=== PATIENT | male | born 1985 | race Caucasian/White ===

== ENCOUNTER 2024-06-19 22:22 | Emergency (ER) | payer MEDICAID, SELFPAY ==
[2024-06-19 22:26] VITALS: BMI 28.7
[2024-06-19 23:12] VITALS: BP 132/84; PULSE 70; RESP 17; TEMP 36.9; O2SAT 99
--- NOTE | 2024-06-19 23:16 | XR_ITS ---
Examination: CT brain head without contrast. 2-D sagittal coronal reconstructions Date and time of exam:June 19, 2024 1131 hrs. Comparison January 08, 2014 Indications: Seizure today CTDI: vol (mGy):52.30 DLP: (mGycm):1071 Technique: Multiple CT axial sections of the brain have been obtained, 5 mm slice thickness. Contrast has not been administered. 2-D sagittal, coronal reconstructions have been obtained Low dose protocols were performed. One or more of the following dose reduction techniques were used; automated exposure control, adjustment of the mA and/or KV according to patient size, use of iterative reconstruction technique. Findings: No significant ventricular enlargement. Stable area encephalomalacia left frontal temporal lobe Intra-axial or extra-axial hemorrhage density is not seen. No mass effect or midline shift Basal cisterns are not remarkable. Fourth ventricle is midline. Cranial vault intact. Severe left ethmoid maxillary antral chronic sinusitis Impression: Negative for acute hemorrhage, mass effect or midline shift Consider elective brain MRI follow-up, pre and postcontrast seizure protocol
--- NOTE | 2024-06-19 23:18 | PD.EDRME ---
Rapid Medical Screening Exam E Arrival date/time: 06/19/24 22:22 39-year-old male with past medical history of epilepsy on Keppra presents emergency department complaining of seizures, nausea vomiting, abdominal pain, and headaches. Chief Complaint: Seizure Time Seen by Provider: 06/19/24 23:14 Vital signs: Vital Signs Temperature 98.4 F 06/19/24 23:12 Pulse Rate 70 06/19/24 23:12 Respiratory Rate 17 06/19/24 23:12 Blood Pressure 132/84 H 06/19/24 23:12 Pulse Oximetry (%) 99 06/19/24 23:12 Oxygen Delivery Method Room Air 06/19/24 23:12 Vital signs reviewed by provider: Yes
[2024-06-20 00:33] LABS: Basophils # (Auto) 0.1 Thou/mm3 (0.0-0.2); Basophils % (Auto) 1 % (0-2.5); Eosinophils # (Auto) 0.1 Thou/mm3 (0.0-0.5); Eosinophils % (Auto) 1 % (0-10); Hemoglobin 13.9 g/dL (13.5-16.0); Immature Granulocytes % (Auto) 0 % (0-0); Immature Granulocytes Auto 0.03 Thou/mm3 (0.00-0.00); Lymphocytes % (Auto) 23 % (10-50); Mean Corpuscular HGB Conc 33.9 g/dl (31.0-37.0); Mean Corpuscular Hemoglobin 29.2 pg (25.0-35.0); Mean Corpuscular Volume 86 fL (80-100); Monocytes # (Auto) 0.9 Thou/mm3 (0.0-0.8); Monocytes % (Auto) 10 % (0-12); Neutrophils # (Auto) 5.6 Thou/mm3 (1.8-7.7); Neutrophils % (Auto) 65 % (37-80); Nucleated Red Blood Cell % 0 /100 WBC (0); Platelet Count 340 Thou/mm3 (140-440); RDW Standard Deviation 37.6 fL (35.1-43.9); Red Blood Count 4.76 Miln/mm3 (4.50-5.90); White Blood Count 8.6 Thou/mm3 (3.8-10.6)
[2024-06-20 00:40] LABS: Alanine Aminotransferase 13 U/L (10-49); Albumin/Globulin Ratio 1.5 (1.2-2.2); Alkaline Phosphatase 61 U/L (46-116); Anion Gap 7 (7-16); Aspartate Amino Transferase 15 U/L (0-34); BUN/Creatinine Ratio 6 Ratio (12-20); Bilirubin,Total 0.5 mg/dL (0.3-1.2); Blood Urea Nitrogen 7 mg/dL (9-23); Calcium 10.6 mg/dL (8.3-10.6); Calcium (Corrected) 10.6 mg/dL (8.5-10.1); Carbon Dioxide 26.9 mMol/L (20.0-31.0); Chloride 107 mMol/L (98-107); Creatinine (Component) 1.1 mg/dL (0.6-1.3); Estimated Creatinine Clearance 117.9 mL/min (>60); Globulin 3.3 gm/dL (2.3-3.5); Glucose 93 mg/dL (74-106); Lipase 34 U/L (12-53); Osmolality,Calculated 279 (275-295); Potassium 3.9 mMol/L (3.4-5.1); Sodium 141 mMol/L (136-145); Total Protein 8.3 gm/dL (5.7-8.2); eGFR > 60 See Note
[2024-06-20 02:52] VITALS: BP 172/93; PULSE 60; RESP 15; O2SAT 100
[2024-06-20 03:00] VITALS: BP 149/83; PULSE 63; RESP 15; O2SAT 99
[2024-06-20 04:00] VITALS: BP 148/91; PULSE 59; RESP 14; O2SAT 100
--- NOTE | 2024-06-20 04:35 | PD.EDSEIZ ---
ED Seizures RME/HPI General Chief Complaint: Seizure Stated Complaint: SEIZURE, STOMACH PAIN, CONFUSION Time Seen by Provider: 06/19/24 23:14 Source: patient and family Arrival date/time: 06/19/24 22:22 Mode of arrival: ambulatory Limitations: no limitations RME / HPI RME / HPI Narrative: 06/19/24 22:22 39-year-old male with past medical history of epilepsy on Keppra presents emergency department complaining of seizures, nausea vomiting, abdominal pain, and headaches. Dr. Christian?s Main ED Evaluation: 39-year-old male who has a history of epilepsy on Keppra, depression who presents with two breakthrough seizures today. He notes compliance with his Keppra and rarely has breakthrough seizures. He has recently been started on Amoxicillin by his dentist which he?s been taking since this past Wednesday. He feels that this is triggering his seizures. His next appointment for his tooth extraction is tomorrow morning and he plans to stop the amoxicillin at this point. He denies drugs. Related Data Home Medications ?Medication ?Instructions ?Recorded ?Confirmed carisoprodol 350 mg tablet (Soma) 350 mg PO HS #0 tabs 09/03/13 prednisone 10 mg tablet 40 mg PO QDAY ##0 09/03/13 Cyclobenzaprine * (FLEXERIL *) 10 mg PO TID PRN DIZZINESS #0 tabs 01/08/14 HYDROCODONE BIT/ACETAMINOPHEN 1 tab PO TID PRN PAIN ##0 01/08/14 (HYDROCODON-ACETAMINOPHEN 5-300) Ketorolac Tromethamine * (TORADOL 10 mg PO Q6HR PRN PAIN #0 tabs 01/08/14 *) allopurinol 300 mg tablet 300 mg PO QDAY #0 tabs 01/08/14 (Zyloprim) bupropion HCl 150 mg tablet,12 hr 150 mg PO BID ##0 01/08/14 sustained-release (Wellbutrin SR) bupropion HCl 75 mg tablet 75 mg PO QDAY #0 tabs 01/08/14 fluoxetine 20 mg capsule (Prozac) 20 mg PO QAM #0 caps 01/08/14 folic acid 1 mg tablet 1 mg PO QDAY #0 tabs 01/08/14 levetiracetam 500 mg tablet 500 mg PO BID #0 tabs 01/08/14 (Keppra) methocarbamol 750 mg tablet 750 mg PO BID #0 tabs 01/08/14 methotrexate sodium 2.5 mg tablet 5 tab PO QWEEK ##0 01/08/14 (methotrexate) naproxen 500 mg tablet (Naprosyn) 1 tab PO BIDWM #0 tabs 01/08/14 phenytoin sodium extended 100 mg 200 mg PO HS ##0 01/08/14 capsule sertraline 25 mg tablet (Zoloft) 25 mg PO HS #0 tabs 01/08/14 Previous Rx's ?Medication ?Instructions ?Recorded paroxetine HCl 10 mg tablet (Paxil) 10 mg PO QDAY #30 tabs 01/15/23 Allergies Allergy/AdvReac Type Severity Reaction Status Date / Time No Known Allergies Allergy Verified 06/19/24 22:37 Review of Systems Review of Systems Systems Reviewed: All systems reviewed, normal except as documented Past Medical History Past Medical History CARDIAC: Negative Congestive Heart Failure RESPIRATORY: Negative Chronic Obstructive Pulmonary Disease (COPD) GENITOURINARY: Negative Renal Disease ENDOCRINE: Negative Diabetes Mellitus Type 1 or Diabetes Mellitus Type 2 Social History SMOKING STATUS: Current some day smoker ED Exam Narrative Physical exam: GENERAL APPEARANCE: AxOx4, generally well-appearing, no acute distress. HEENT: NC, AT. MMM. EOMI, clear conjunctiva, oropharynx clear. NECK: Supple without lymphadenopathy. No stiffness or restricted ROM. HEART: Normal rate and regular rhythm, normal S1/S1, no m/r/g LUNGS: CTAB, moving air well. No crackles or wheezes are heard. ABDOMEN: Soft, nontender, nondistended with good bowel sounds heard. BACK: No midline C/T/L spine pain or deformity, No CVAT, no obvious deformity. EXTREMITIES: Without cyanosis, clubbing or edema. MUSCULOSKELETAL: FROM of all major joints, no chest tenderness NEUROLOGICAL: Grossly nonfocal. Alert and oriented, moving all 4 extremities. CN not formally tested but appear grossly intact. Observed to ambulate with normal gait. Skin: Warm and dry without any rash General Limitations: Present no limitations Course Quality Measures none Orders Category Date Time Status Bedside COVID-19 Antigen Test NOW Care 06/19/24 23:17 Completed Bedside Influenza A&B Antigen Test NOW Care 06/19/24 23:[address] head/brain wo con Stat Exams 06/19/24 23:16 Completed US OB <= 14 weeks fetus Stat Exams 06/19/24 23:15 Stop Req CBC Stat Lab 06/19/24 23:16 Completed CMP [Comprehensive Metabolic Panel] Stat Lab 06/19/24 23:16 Completed Lipase Stat Lab 06/19/24 23:16 Completed Vital Signs Vital signs: Vital Signs Temperature 98.4 F 06/19/24 23:12 Pulse Rate 70 06/19/24 23:12 Respiratory Rate 17 06/19/24 23:12 Blood Pressure 132/84 H 06/19/24 23:12 Pulse Oximetry (%) 99 06/19/24 23:12 Oxygen Delivery Method Room Air 06/19/24 23:12 Seizure MDM Narrative MDM Narrative:: Scribe Attestation: I, Viktor Bullard, am scribing for and in the presence of Dr. Christian. Provider Notation: Although this document has been carefully reviewed, there may still be some phonetic and other typographical errors. These errors are purely grammatical due to imperfections in the software program and should not be construed in any way to compromise the substance of the patient's medical care during this visit. Patient data External records reviewed:: [facility] previous records Clinical information provided by:: patient Social determinants that could affect healthcare access:: none Patient has the following chronic illnesses:: Seizures on Keppra, Depression How is presenting disease/condition affected by chronic disease/condition?: caused by Evaluation data The following diagnostics were reviewed and interpreted by me:: lab results and radiology exam(s) Lab and/or radiology exams considered but not ordered:: None Interpretation Summary: I personally reviewed the radiology data and agree with the radiologist's interpretation. Examination: CT brain head without contrast. 2-D sagittal coronal reconstructions Date and time of exam:June 19, 2024 1131 hrs. Comparison January 08, 2014 Indications: Seizure today Findings: No significant ventricular enlargement. Stable area encephalomalacia left frontal temporal lobe Intra-axial or extra-axial hemorrhage density is not seen. No mass effect or midline shift Basal cisterns are not remarkable. Fourth ventricle is midline. Cranial vault intact. Severe left ethmoid maxillary antral chronic sinusitis Impression: Negative for acute hemorrhage, mass effect or midline shift Consider elective brain MRI follow-up, pre and postcontrast seizure protocol Dictated By: Brad Glass MD Medications / Prescriptions Medications or Prescriptions considered but not ordered:: None Medication administrations:: As above, if any Consultations Consultation(s) initiated? (list below): No Diagnosis Seizure Differential Diagnosis: intractable seizure disorder, focal seizure, generalized seizure, new onset seizure, epileptic seizure and status epilepticus Most likely diagnosis given after review of the tests above:: Epileptic seizure Admission Indicated Admission indicated?: not indicated Admission Request Was there a request for admission?: No Disposition Plan Disposition Plan: Discharge Discharge Attestation Discharge Attestation: The patient and all family members were given an opportunity to ask questions and understood the discharge instructions. Discharge instructions specifically effects, indications for sooner follow up or return to the emergency department, and the expected course of current diagnosis. Patient condition: Stable Discharge Plan Plan Patient Disposition: HOME (Self Care) Prescriptions/Referrals Prescriptions/Med Rec: No Action carisoprodol [Soma] 350 MG tablet 350 mg PO HS Qty: 0 prednisone 10 MG tablet 40 mg PO QDAY Qty: 0 bupropion HCl [Wellbutrin SR] 150 MG tablet extended release 12 hr 150 mg PO BID Qty: 0 levetiracetam [Keppra] 500 MG tablet 500 mg PO BID Qty: 0 phenytoin sodium extended 100 MG capsule 200 mg PO HS Qty: 0 methocarbamol 750 MG tablet 750 mg PO BID Qty: 0 methotrexate sodium [methotrexate] 2.5 MG tablet 5 tab PO QWEEK Qty: 0 bupropion HCl 75 MG tablet 75 mg PO QDAY Qty: 0 sertraline [Zoloft] 25 MG tablet 25 mg PO HS Qty: 0 folic acid 1 MG tablet 1 mg PO QDAY Qty: 0 allopurinol [Zyloprim] 300 MG tablet 300 mg PO QDAY Qty: 0 fluoxetine [Prozac] 20 MG capsule 20 mg PO QAM Qty: 0 naproxen [Naprosyn] 500 MG tablet 1 tab PO BIDWM Qty: 0 Patient Comments: PRN PAIN Cyclobenzaprine * (FLEXERIL *) 10 MG tablet 10 mg PO TID PRN (Reason: DIZZINESS) Qty: 0 HYDROCODONE BIT/ACETAMINOPHEN (HYDROCODON-ACETAMINOPHEN 5-300) 1 EACH tablet 1 tab PO TID PRN (Reason: PAIN) Qty: 0 Ketorolac Tromethamine * (TORADOL *) 10 MG tablet 10 mg PO Q6HR PRN (Reason: PAIN) Qty: 0 paroxetine HCl [Paxil] 10 mg tablet 10 mg PO QDAY Qty: 30 0RF Referrals: No Primary/Family,Physician [Primary Care Provider] - In 1 week Problem List Clinical Impression: Epileptic seizure Patient/Caregiver Discharge Instructions Education Materials: ED Seizure, Recurrent (Adult) Additional Instructions: At this point it would be fine to stop the amoxicillin. You can continue to see the dentist with your planned procedure. Follow-up with your neurologist in 1 week for recheck. Feel free return to the emergency department sooner if symptoms worsen or if you notice any new, concerning issues. Print Language: Monegasque Stand Alone Forms: [facility] Award Info., Patient Portal Info Letter
== END 2024-06-20 04:09 | disposition home or self-care (01) ==
PROVIDERS: Emergency Provider Emergency Medicine
DX: G40.909 Epilepsy, unspecified, not intractable, without status epilepticus (principal)
CPT/HCPCS: 36415; 70450; 80053; 80307; 81001; 83690; 84702; 85025; 86900; 86901; 87400; 87651; 87811; 99284

== ENCOUNTER 2025-01-02 07:03 | Emergency (ER) | payer MEDICAID, SELFPAY ==
[2025-01-02] VITALS (22 sets, daily range): BP systolic 136–158; BP diastolic 74–108; PULSE 61–137; RESP 13–40; TEMP 36.2–37.2; O2SAT 93–100; BMI 28.2
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
[2025-01-02] MEDS: levETIRAcetam INJ 100 MG/ML VIAL 5ML 1000 MG IVP (08:06)
[2025-01-02 08:43] LABS: Basophils % (Auto) 1 % (0-2.5); Eosinophils % (Auto) 0 % (0-10); Hemoglobin 15.6 g/dL (13.5-16.0); Immature Granulocytes % (Auto) 0 % (0-0); Immature Granulocytes Auto 0.02 Thou/mm3 (0.00-0.00); Lymphocytes # (Auto) 1.2 Thou/mm3 (1.0-4.8); Lymphocytes % (Auto) 16 % (10-50); Mean Corpuscular HGB Conc 35.5 g/dl (31.0-37.0); Mean Corpuscular Hemoglobin 29.9 pg (25.0-35.0); Mean Corpuscular Volume 84 fL (80-100); Monocytes # (Auto) 0.7 Thou/mm3 (0.0-0.8); Monocytes % (Auto) 9 % (0-12); Neutrophils # (Auto) 5.3 Thou/mm3 (1.8-7.7); Neutrophils % (Auto) 73 % (37-80); Nucleated Red Blood Cell % 0 /100 WBC (0); Platelet Count 257 Thou/mm3 (140-440); RDW Standard Deviation 38.6 fL (35.1-43.9); Red Blood Count 5.22 Miln/mm3 (4.50-5.90); White Blood Count 7.2 Thou/mm3 (3.8-10.6)
[2025-01-02 09:08] LABS: Alanine Aminotransferase 14 U/L (10-49); Albumin, Serum 5.3 gm/dL (3.5-5.0); Albumin/Globulin Ratio 1.8 (1.2-2.2); Alcohol, Blood Medical < 3.0 mg/dL (0-10.0); Alkaline Phosphatase 54 U/L (46-116); Anion Gap 14 (7-16); Aspartate Amino Transferase 20 U/L (0-34); BUN/Creatinine Ratio 12 Ratio (12-20); Bilirubin,Total 1.1 mg/dL (0.3-1.2); Blood Urea Nitrogen 13 mg/dL (9-23); Calcium 9.5 mg/dL (8.3-10.6); Calcium (Corrected) 9.5 mg/dL (8.5-10.1); Carbon Dioxide 25.1 mMol/L (20.0-31.0); Chloride 104 mMol/L (98-107); Creatinine (Component) 1.1 mg/dL (0.6-1.3); Estimated Creatinine Clearance 113.8 mL/min (>60); Globulin 2.9 gm/dL (2.3-3.5); Glucose 105 mg/dL (74-106); Lipase 31 U/L (12-53); Magnesium 2.1 mg/dL (1.6-2.6); Osmolality,Calculated 285 (275-295); Potassium 3.8 mMol/L (3.4-5.1); Sodium 143 mMol/L (136-145); Total Protein 8.2 gm/dL (5.7-8.2); eGFR > 60 See Note
[2025-01-02 11:29] LABS: Collection Type, Urine Clean Catch; Squamous Epithelial Cell,Urine 0 /hpf (0-5); WBC,Urine 0 /hpf (0-5)
[2025-01-02 11:39] LABS: Bilirubin,Urine Negative (Negative); Blood,Urine Negative (Negative); Clarity,Urine Clear (Clear/Hazy); Color,Urine Colorless (Lt Yel-Yel); Culture Indicated,Urine Not Indicated; Glucose, Urine Negative (Negative); Ketones,Urine Trace (Negative); Leukocyte Esterase,Urine Negative (Negative); Nitrite,Urine Negative (Negative); Protein,Urine Negative (Neg - Trace); RBC,Urine < 1 /hpf (0-3); Specific Gravity,Urine 1.011 (1.001-1.035); Urobilinogen,Urine Negative mg/dL (0.0-1.0)
[2025-01-02 12:04] LABS: Amphetamine/Methamp Scrn,U Negative (Negative); Barbiturate Screen,Urine Negative (Negative); Benzodiazepines Screen,Urine Negative (Negative); Benzoylecgonine Screen, Ur Negative (Negative); Fentanyl Screen,Urine Negative (Negative); Opiate Screen,Urine Positive (Negative); THC Screen,Urine Positive (Negative)
== END 2025-01-02 11:41 | disposition home or self-care (01) ==
PROVIDERS: Emergency Provider Emergency Medicine; PCP Physician Assistant
DX: R56.9 Unspecified convulsions (principal); F41.1 Generalized anxiety disorder
CPT/HCPCS: 36415; 80053; 80307; 80320; 81001; 83690; 83735; 85025; 96127; 96374; 99284; J1953; G0480